=== PATIENT | female | born 1995 | race Caucasian/White ===

== ENCOUNTER 2018-05-31 17:34 | Emergency (ER) | payer SELFPAY | END 2018-05-31 18:48 | disposition left against medical advice (07) | LOC: ER 17:34 | DX: N93.9 Abnormal uterine and vaginal bleeding, unspecified (principal); Z53.21 Procedure and treatment not carried out due to patient leaving prior to being seen by health care provider ==

== ENCOUNTER 2018-07-25 20:38 | Emergency (ER) | payer SELFPAY ==
[~2018-07-25] VITALS: Ht 157.5 cm; Wt 86.0 kg
[2018-07-26] MEDS ORDERED: SODIUM CHLORIDE 0.9% 1,000 ML IV ONE (00:57)
[2018-07-26] MEDS ORDERED: ONDANSETRON HCL 4MG/2ML INJ IV ONE (01:00)
[2018-07-26] MEDS ORDERED: KETOROLAC 30MG/ML VIAL IV ONE (01:00)
[2018-07-26] MEDS ORDERED: ACETAMINOPHEN 325MG TABLET PO ONE (01:45)
[2018-07-26 01:52] LABS: BASOPHILS % 0.6 % (0.0-2.0); EOSINOPHILS % 1.9 % (0.0-5.0); HEMOGLOBIN. 13.1 g/dL (12.0-16.0); LYMPHOCYTES % 34.7 % (20.0-50.0); MEAN CORPUSCULAR HEMOGLOBIN 31.3 pg (28.0-32.0); MEAN CORPUSCULAR VOLUME 90.5 fL (81.0-99.0); MONOCYTES % 6.4 % (2.0-8.0); NEUTROPHILS % 56.4 % (40.0-76.0); PLATELET 324 x1000/uL (130-400); RED CELL DISTRIBUTION WIDTH 12.8 % (11.6-14.6)
[2018-07-26 02:53] LABS: CLARITY URINE CLEAR (CLEAR); COLOR URINE YELLOW (YELLOW); KETONES URINE NEGATIVE (NEGATIVE); LEUKOCYTE ESTERASE URINE NEGATIVE (NEGATIVE); NITRITE URINE NEGATIVE (NEGATIVE); OCCULT BLOOD URINE NEGATIVE (NEGATIVE); PH URINE 6.5 (4.5-8.0); PROTEIN URINE NEGATIVE (NEGATIVE); SPECIFIC GRAVITY URINE 1.006 (1.005-1.030); UROBILINOGEN URINE 0.2 E.U./dL (0.2-1.0)
[2018-07-26 03:04] LABS: CHLORIDE 110 mEq/L (98-107)
[2018-07-26] MEDS ORDERED: TRAMADOL 50MG TABLET PO ONE (04:15)
[2018-07-26 05:39] VITALS: BP 107/66
== END 2018-07-26 05:41 | disposition home or self-care (01) ==
LOC: ER 20:38
DX: R10.2 Pelvic and perineal pain (principal); R11.2 Nausea with vomiting, unspecified; N93.9 Abnormal uterine and vaginal bleeding, unspecified; N83.299 Other ovarian cyst, unspecified side
CPT/HCPCS: 36415; 76856; 80053; 81003; 81025; 85025; 96361; 96374; 96375; 99285; J1885; J2405; J7030

== ENCOUNTER 2019-05-09 17:26 | Emergency (ER) | payer SELFPAY ==
[~2019-05-09] VITALS: Ht 157.5 cm; Wt 82.0 kg
[2019-05-09] MEDS ORDERED: DIPHENHYDRAMINE 50MG CAPSULE PO ONE (21:00)
[2019-05-09 21:30] VITALS: BP 120/52
== END 2019-05-09 21:31 | disposition home or self-care (01) ==
LOC: ER 17:55
DX: S90.862A Insect bite (nonvenomous), left foot, initial encounter (principal); S90.861A Insect bite (nonvenomous), right foot, initial encounter; S90.562A Insect bite (nonvenomous), left ankle, initial encounter; S90.561A Insect bite (nonvenomous), right ankle, initial encounter; W57.XXXA Bitten or stung by nonvenomous insect and other nonvenomous arthropods, initial encounter; Y93.89 Activity, other specified; Y92.89 Other specified places as the place of occurrence of the external cause; Y99.8 Other external cause status
CPT/HCPCS: 99282; Q0163

== ENCOUNTER 2019-08-10 15:40 | Emergency (ER) | payer SELFPAY ==
[~2019-08-10] VITALS: Ht 157.5 cm; Wt 79.0 kg
[2019-08-10] MEDS ORDERED: SODIUM CHLORIDE 0.9% 1,000 ML IV ONE (21:49)
[2019-08-10] MEDS ORDERED: ONDANSETRON HCL 4MG/2ML INJ IV ONE (22:00)
[2019-08-10] MEDS ORDERED: MORPHINE SULFATE 4 MG/ML CPJ (NOT FOR IM USE) IV ONE (22:00)
[2019-08-10] MEDS ORDERED: KETOROLAC 30MG/ML VIAL IV ONE (22:00)
[2019-08-10 22:13] LABS: CLARITY URINE CLOUDY (CLEAR); COLOR URINE YELLOW (YELLOW); KETONES URINE TRACE (NEGATIVE); LEUKOCYTE ESTERASE URINE NEGATIVE (NEGATIVE); NITRITE URINE POSITIVE (NEGATIVE); OCCULT BLOOD URINE 3+ (NEGATIVE); PH URINE 5.5 (4.5-8.0); PROTEIN URINE NEGATIVE (NEGATIVE); SPECIFIC GRAVITY URINE 1.024 (1.005-1.030); UROBILINOGEN URINE 0.2 E.U./dL (0.2-1.0)
[2019-08-10 22:16] LABS: BASOPHILS % 0.5 % (0.0-2.0); EOSINOPHILS % 1.3 % (0.0-5.0); HEMATOCRIT. 38.8 % (36.0-48.0); HEMOGLOBIN. 13.2 g/dL (12.0-16.0); MEAN CORPUSCULAR HEMOGLOBIN 31.1 pg (28.0-32.0); MEAN CORPUSCULAR VOLUME 91.3 fL (81.0-99.0); MEAN PLATELET VOLUME 7.9 fl (7.4-10.4); MONOCYTES % 7.5 % (2.0-8.0); NEUTROPHILS % 63.7 % (40.0-76.0); PLATELET 351 x1000/uL (130-400); RED BLOOD CELL COUNT 4.24 mill/uL (4.2-5.4); RED CELL DISTRIBUTION WIDTH 12.3 % (11.6-14.6)
[2019-08-10 22:20] LABS: CHLORIDE 112 mEq/L (98-107)
[2019-08-10 22:31] LABS: B-HCG QUANTITATIVE < 1 mIU/mL (<3)
[2019-08-11 01:12] VITALS: BP 101/58
== END 2019-08-11 01:16 | disposition home or self-care (01) ==
LOC: ER 15:40
DX: N83.201 Unspecified ovarian cyst, right side (principal); N39.0 Urinary tract infection, site not specified; N92.0 Excessive and frequent menstruation with regular cycle
CPT/HCPCS: 36415; 76830; 76856; 80053; 81003; 81025; 83690; 84702; 85025; 86850; 86900; 86901; 96374; 96375; 99284; J1885; J2270; J2405; J7030; Z7610

== ENCOUNTER 2021-06-20 01:32 | Emergency (ER) | payer MEDICAID ==
[~2021-06-20] VITALS: Ht 157.5 cm; Wt 87.0 kg
[2021-06-20] MEDS ORDERED: KETOROLAC 60MG/2ML VIAL IM STA (02:37)
[2021-06-20 03:37] LABS: CLARITY URINE CLOUDY (CLEAR); COLOR URINE DARK YELLOW (YELLOW); KETONES URINE TRACE (NEGATIVE); LEUKOCYTE ESTERASE URINE TRACE (NEGATIVE); NITRITE URINE NEGATIVE (NEGATIVE); OCCULT BLOOD URINE NEGATIVE (NEGATIVE); PROTEIN URINE 1+ (NEGATIVE); SPECIFIC GRAVITY URINE 1.031 (1.005-1.030)
[2021-06-20 03:50] VITALS: BP 110/62
[2021-06-20] MEDS ORDERED: NAPR-681 PO (03:50)
== END 2021-06-20 04:02 | disposition home or self-care (01) ==
LOC: ER 02:20
DX: M54.5 Low back pain (principal)
CPT/HCPCS: 81003; 81025; 96372; 99283; J1885

== ENCOUNTER 2025-01-21 00:11 | Emergency (ER) | payer MEDICAID ==
[~2025-01-21] VITALS: Ht 157.5 cm; Wt 84.0 kg
[~2025-01-21 00:11] MED LIST: NAPR-681 PO
[2025-01-21 00:17] VITALS: O2SAT 100
[2025-01-21] MEDS: ONDANSETRON HCL 4MG/2ML INJ IV STA (01:26)
[2025-01-21] MEDS: MORPHINE SULFATE 4 MG/ML INJ (FOR IV/IM USE) IV STA (01:30)
[2025-01-21 01:32] LABS: BASOPHILS % 0.4 % (0.0-2.0); EOSINOPHILS % 1.2 % (0.0-5.0); HEMATOCRIT. 39.6 % (36.0-48.0); HEMOGLOBIN. 13.1 g/dL (12.0-16.0); LYMPHOCYTES % 20.2 % (20.0-50.0); MEAN CORPUSCULAR HEMOGLOBIN 30.6 pg (28.0-32.0); MEAN CORPUSCULAR HGB CONC 33.2 g/dL (31.0-37.0); MEAN CORPUSCULAR VOLUME 92.4 fL (81.0-99.0); MEAN PLATELET VOLUME 7.7 fl (7.4-10.4); MONOCYTES % 5.4 % (2.0-8.0); NEUTROPHILS % 72.8 % (40.0-76.0); PLATELET 352 x1000/uL (130-400); RED BLOOD CELL COUNT 4.28 mill/uL (4.2-5.4); RED CELL DISTRIBUTION WIDTH 13.8 % (11.6-14.6); WHITE BLOOD COUNT 11.6 x1000/uL (4.5-11.0)
[2025-01-21] MEDS: SODIUM CHLORIDE 0.9% 1,000 ML IV ONE (01:33)
[2025-01-21 01:43] LABS: CHLORIDE 110 mEq/L (98-107); POTASSIUM 3.9 mEq/L (3.5-5.1); SODIUM 141 mEq/L (136-145)
[2025-01-21 01:44] LABS: CALCIUM 8.9 mg/dL (8.7-10.4); CARBON DIOXIDE 24 mEq/L (21-32)
[2025-01-21 01:49] LABS: CREATININE 0.6 mg/dL (0.6-1.0); GLUCOSE 113 mg/dL (70-105); UREA NITROGEN BLOOD 12 mg/dL (9-23)
[2025-01-21 02:23] LABS: HCG SCREEN NEGATIVE
[2025-01-21 02:33] VITALS: TEMP 36.8
[2025-01-21] MEDS ORDERED: IBUP-2029 MT (04:48)
[2025-01-21] MEDS: IOHEXOL-300 100 ML BOTTLE ONE (05:37)
[2025-01-21 06:00] VITALS: BP 111/85; PULSE 97; RESP 16; O2SAT 95
== END 2025-01-21 06:01 | disposition home or self-care (01) ==
LOC: ER 00:11
DX: S09.8XXA Other specified injuries of head, initial encounter (principal); T14.8XXA Other injury of unspecified body region, initial encounter; V89.2XXA Person injured in unspecified motor-vehicle accident, traffic, initial encounter; Y93.9 Activity, unspecified; Y92.89 Other specified places as the place of occurrence of the external cause; Y99.8 Other external cause status
CPT/HCPCS: 99291; 70450; 96374; 96361; 96375; 80048; 84703; 85025; 86850; 86900; 86901; 36415; 71260; 72125; 74177; Q9967; J2405; J2270; J7030

== ENCOUNTER 2025-06-25 20:57 | Emergency (ER) | payer MEDICAID ==
[~2025-06-25] VITALS: Ht 157.5 cm; Wt 91.0 kg
[~2025-06-25 20:57] MED LIST changes: +IBUP-1455 MT
[2025-06-25 21:20] VITALS: TEMP 37.2; O2SAT 98
[2025-06-25 21:23] VITALS: O2SAT 99
[2025-06-25 21:42] LABS: CLARITY URINE CLEAR (CLEAR); COLOR URINE YELLOW (YELLOW); GLUCOSE URINE NEGATIVE (NEGATIVE); KETONES URINE NEGATIVE (NEGATIVE); LEUKOCYTE ESTERASE URINE TRACE (NEGATIVE); NITRITE URINE NEGATIVE (NEGATIVE); OCCULT BLOOD URINE TRACE (NEGATIVE); PH URINE 7.0 (4.5-8.0); PROTEIN URINE NEGATIVE (NEGATIVE); SPECIFIC GRAVITY URINE 1.009 (1.005-1.030); UROBILINOGEN URINE 0.2 E.U./dL (0.2-1.0)
[2025-06-25 21:51] LABS: BACTERIA URINE TRACE; SQUAMOUS EPITHELIAL CELL URINE RARE /lpf (RARE/1+)
[2025-06-26] MEDS ORDERED: NITR-87 MT (01:45)
[2025-06-26] MEDS ORDERED: IBUP-1455 MT (01:45)
[2025-06-26 01:59] VITALS: BP 140/78; PULSE 100; RESP 20
[2025-06-26] MEDS: KETOROLAC 30MG/ML VIAL IM ONE (01:59)
== END 2025-06-26 02:35 | disposition home or self-care (01) ==
LOC: ER 20:57
DX: R10.9 Unspecified abdominal pain (principal); R19.7 Diarrhea, unspecified; R50.9 Fever, unspecified; F12.90 Cannabis use, unspecified, uncomplicated
CPT/HCPCS: 99284; 81003; 71045; 81025; 96372; J1885